=== PATIENT | male | born 1945 | race Caucasian/White ===

== ENCOUNTER 2021-05-20 18:22 | Emergency (ER) | payer MEDICAID ==
[~2021-05-20] VITALS: Ht 165.1 cm; Wt 49.9 kg
--- NOTE | 2021-05-20 18:45 | NUR ---
Pending MD evaluation. Patient in ER, accompanied by daughter. Patient alert and oriented x4 with complaints of abdominal pain 8 started this morning, with episodes of vomiting x2. Patient with history of pancreatic cancer stage 4 and currently on chemo therapy according to daughter. Vitals stable.
--- NOTE | 2021-05-20 19:02 | NUR ---
RECEIVED REPORT FROM MORNING SHIFT RN (CRISTY) PT NOTED TO BE IN BED, A/O X4, CLEAR SPEECH, COMPLETE SENTENCES. NO SOB OR LABORED BREATHING. DAUGHTER AT BEDSIDE.
[2021-05-20] MEDS ORDERED: IV NORMAL SALINE 1000 ML BAG IV ONE (19:15)
[2021-05-20] MEDS ORDERED: ONDANSETRON 4 MG/2 ML VIAL IV ONE (19:15)
[2021-05-20] MEDS ORDERED: HYDROMORPHONE 1 MG/1 ML DISP.SYRIN IV ONE (19:15)
[2021-05-20] MEDS ORDERED: HYDROMORPHONE 1 MG/1 ML DISP.SYRIN ONE (19:34)
[2021-05-20] MEDS ORDERED: ONDANSETRON 4 MG/2 ML VIAL ONE (19:34)
--- NOTE | 2021-05-20 19:40 | NUR ---
LAB AT BEDSIDE.
[2021-05-20 19:43] LABS: MEAN CORPUSCULAR HEMOGLOBIN 30.5 uug (23.8-33.4); MEAN CORPUSCULAR VOLUME 90.4 fL (73.0-96.2); PLATELET COUNT (AUTO) 346 K/uL (152-348)
[2021-05-20 19:52] LABS: CARBON DIOXIDE 26 mmol/L (21-32); CHLORIDE 98 mmol/L (98-107); CREATININE 0.9 mg/dL (0.6-1.3); GLUCOSE 261 mg/dL (74-106); POTASSIUM 3.5 mmol/L (3.5-5.1); UREA NITROGEN, BLOOD 23 mg/dL (7-18)
[2021-05-20 20:01] LABS: ALANINE AMINOTRANSFERASE 23 U/L (16-63); ALKALINE PHOSPHATASE 87 U/L (50-136); ASPARTATE AMINOTRANSFERASE 25 U/L (15-37); BILIRUBIN,DIRECT 0.2 mg/dL (0.0-0.2); BILIRUBIN,TOTAL 0.7 mg/dL (0.2-1.0); LIPASE 46 U/L (73-393); TOTAL PROTEIN, SERUM 6.9 g/dL (6.4-8.2)
[2021-05-20] MEDS ORDERED: SWABABLE VALVE TRANSFER SET EA MC ONE (20:06)
[2021-05-20] MEDS ORDERED: IOHEXOL 300MG/ML 100 ML INFUS..BTL ONE (20:07)
[2021-05-20] MEDS ORDERED: IV NORMAL SALINE 250 ML IV ONE (20:07)
[2021-05-20 20:52] LABS: *BILIRUBIN,URIN NEGATIVE (NEGATIVE); *CLARITY,URINE CLEAR (CLEAR); *COLOR,URINE YELLOW (YELLOW); *KETONES,URINE 1+ (NEGATIVE); *UROBILINOGEN,URINE 0.2 E.U./dl (NORMAL); LEUKOCYTE ESTERASE ,URINE NEGATIVE (NEGATIVE); NITRITE, URINE NEGATIVE (NEGATIVE); UGLUCOSE 1+ (NEGATIVE)
[2021-05-20 20:56] LABS: *BLOOD, URINE TRACE (NEGATIVE)
--- NOTE | 2021-05-20 20:56 | NUR ---
PT TAKEN DOWN FOR CT.
[2021-05-20 21:10] LABS: BACTERIA,URINE NONE SEEN /HPF (NONE SEEN); RBC,URINE 0-3 /HPF (0-3); SQUAMOUS EPITHELIAL CELL,UR FEW /HPF (NONE SEEN); WBC,URINE 0-3 /HPF (0-3)
[2021-05-20 21:11] LABS: SPERM,URINE MANY /HPF (NONE SEEN)
[2021-05-20] MEDS ORDERED: IV NS 1000 ML 1,000 ML IV ONE (21:15)
--- NOTE | 2021-05-20 21:16 | NUR ---
PT RETURNED FROM CT.
[2021-05-20] MEDS ORDERED: PIPERACILLIN SODIUM/TAZOBACTAM 3.375 G in IV DEXTROSE 5% 50 ML IV ONE (22:30)
[2021-05-20] MEDS ORDERED: PIPERACILLIN/TAZOBACTAM/D5W 50 ML IV ONE (22:40)
[2021-05-20] MEDS ORDERED: PROC-11 PO (22:47)
[2021-05-20] MEDS ORDERED: PROC25SU31 RC (22:47)
[2021-05-20 23:24] VITALS: BP 112/64
--- NOTE | 2021-05-20 23:24 | NUR ---
Patient discharged to home in stable condition. Written and verbal after care instructions given. Patient verbalizes understanding of instructions. Stressed follow up or return to ER for worsening s/s. Steady gait, denies any pain/discomfort upon discharge. No changes in LOC. Accompanied by daughter.
== END 2021-05-20 23:25 | disposition home or self-care (01) ==
LOC: ER 18:24
DX: R10.9 Unspecified abdominal pain (principal); R11.2 Nausea with vomiting, unspecified; E87.2 Acidosis; K56.7 Ileus, unspecified; R94.8 Abnormal results of function studies of other organs and systems; I45.10 Unspecified right bundle-branch block; C25.9 Malignant neoplasm of pancreas, unspecified; C78.7 Secondary malignant neoplasm of liver and intrahepatic bile duct; Z79.899 Other long term (current) drug therapy
CPT/HCPCS: 36415; 71045; 74177; 80048; 80076; 81001; 83605 ×2; 83690; 84484; 85025; 93005; 96361; 96365; 96375; 99285; J1170; J2405; J2543; Q9967; A4663; J7030; J7050

== ENCOUNTER 2021-05-27 14:15 | Inpatient (IN) | payer MEDICAID ==
[~2021-05-27] VITALS: Ht 162.6 cm; Wt 49.9 kg
[~2021-05-27 14:15] MED LIST: PROC-11 PO; PROC25SU31 RC
--- NOTE | 2021-05-27 14:15 | NUR ---
pt not in the waiting room, family member said that the pt will come soon.
--- NOTE | 2021-05-27 14:31 | NUR ---
Patient is still not found in the ER waiting room.
--- NOTE | 2021-05-27 15:01 | NUR ---
MD@bedside, medical screening exam in progress. Patient is already refusing admission (for chest pains diagnosis) with family as [facility] educational sign language interpreter. ER or first assist registered nurse Sepi also acted as [facility] educational sign language interpreter.
[2021-05-27] MEDS ORDERED: LIDOCAINE VISCUS 2% 15 ML UDC ONE (15:10)
[2021-05-27] MEDS ORDERED: ASPIRIN 325 MG TABLET ONE (15:10)
[2021-05-27] MEDS ORDERED: FAMOTIDINE 20 MG TABLET ONE (15:10)
[2021-05-27] MEDS ORDERED: ASPIRIN 325 MG TABLET PO ONE (15:15)
[2021-05-27] MEDS ORDERED: LIDOCAINE VISCUS 2% 15 ML UDC MM ONE (15:15)
[2021-05-27] MEDS ORDERED: FAMOTIDINE 20 MG TABLET PO ONE (15:15)
[2021-05-27 15:39] LABS: HEMATOCRIT 33.6 % (36.7-47.1); MEAN CORPUSCULAR HEMOGLOBIN 30.2 uug (23.8-33.4); MEAN CORPUSCULAR VOLUME 89.7 fL (73.0-96.2); PLATELET COUNT (AUTO) 207 K/uL (152-348)
[2021-05-27 15:47] LABS: CARBON DIOXIDE 30 mmol/L (21-32); CHLORIDE 95 mmol/L (98-107); CREATININE 0.9 mg/dL (0.6-1.3); GLUCOSE 205 mg/dL (74-106); UREA NITROGEN, BLOOD 28 mg/dL (7-18)
--- NOTE | 2021-05-27 15:49 | NUR ---
Patient had one small emesis of light yellow gastric fluid, approx 10 ml, MD notified.
[2021-05-27 15:51] LABS: POTASSIUM 2.8 mmol/L (3.5-5.1)
[2021-05-27 15:55] LABS: ALANINE AMINOTRANSFERASE 39 U/L (16-63); ALKALINE PHOSPHATASE 86 U/L (50-136); ASPARTATE AMINOTRANSFERASE 23 U/L (15-37); BILIRUBIN,TOTAL 0.5 mg/dL (0.2-1.0)
[2021-05-27] MEDS ORDERED: MORPHINE SULFATE 4 MG/1 ML DISP.SYRIN IM ONE (16:15)
[2021-05-27] MEDS ORDERED: MORPHINE SULFATE 4 MG/1 ML DISP.SYRIN ONE (16:21)
[2021-05-27] MEDS ORDERED: NITROGLYCERIN 0.4 MG/TAB BOTTLE SL ONE ×2 (16:45→16:53)
[2021-05-27] MEDS ORDERED: ENOXAPARIN SODIUM 60 MG/0.6 ML DISP.SYRIN SQ ONE ×2 (17:00→17:18)
--- NOTE | 2021-05-27 17:59 | NUR ---
Pt. admitted to Telemetry room 319 , under care of COMPENSATION AND BENEFITS ANALYST Tammie Santizo. Nursing SBAR given to nurse Dahl. Belongings List completed. Patient is for transfer to 3rd floor at around 8pm per 3rd floor supercharger repair supervisor Rohoni 2/2 staff issues and acuity in 3rd floor.
[2021-05-27] MEDS ORDERED: MAGNESIUM HYDROXIDE 30 ML LIQUID UDC PO PRN ×2 (18:00→20:15)
[2021-05-27] MEDS ORDERED: ACETAMINOPHEN 325 MG TABLET PO PRN ×2 (18:00→20:00)
[2021-05-27] MEDS ORDERED: ZOLPIDEM 5 MG TABLET PO PRN ×2 (18:00→20:15)
[2021-05-27] MEDS ORDERED: ONDANSETRON 4 MG/2 ML VIAL IV PRN ×2 (18:00→20:15)
[2021-05-27] MEDS ORDERED: MORPHINE SULFATE 2 MG/1 ML DISP.SYRIN IV PRN (18:00)
[2021-05-27] MEDS ORDERED: REMEDY ESSENTIAL ZINC PASTE 113 GM TP PRN (18:00)
--- NOTE | 2021-05-27 18:16 | NUR ---
Patient's care is upgraded to CCU per Dr Toro. Patient's family notified.
[2021-05-27] MEDS ORDERED: NITROGLYCERIN 0.4 MG/TAB BOTTLE SL PRN ×2 (19:00→20:15)
--- NOTE | 2021-05-27 19:01 | NUR ---
Patient is admitted to 3rd floor (telemetry vs [facility] vs CCU), pending callback from GARMENT ALTERATION EXAMINER Tammie Santizo, still for repeat EKG. Nursing SBAR given to ER-RN Eli Hamilton
--- NOTE | 2021-05-27 19:24 | NUR ---
Still for repeat EKG, night guard charge hand Albert notified.
--- NOTE | 2021-05-27 19:25 | NUR ---
MICROFILM CAMERA OPERATOR CATRACHITO LOTT CAME AND SAW PATIENT ,SPOKED WITH PATIENTS FAMILY MEMBERS ( DAUGHTER)AND PER DAUGHTER SHE SPOKED WITH HER MOM AND THEY WANT TO SIGNED AMA AND THEY DONT WANT PATIENT TO BE ADMITTED . CATRACHITO LOTT TOLD RN TO HAVE THE PATIENT FAMILY SIGNED THE AMA PAPERS.
--- NOTE | 2021-05-27 19:26 | NUR ---
BEDSIDE EKG DONE BY RN AT B/S RESULT -SR RATE 74,NORMAL P ,V RATE 50 -99 INFERIOR INFARCT OLD . NOTIFIED.
--- NOTE | 2021-05-27 19:42 | NUR ---
Nursing SBAR given to CCU nurse Alma.
--- NOTE | 2021-05-27 19:54 | NUR ---
CALLED : CATRACHITO REYES VIA PHONE THIS TIME THE OF THE PATIENT AND DAUGHTER WANTS TO SPEAK WITH THE DOCOTR AGAIN AND THEY HAVE QUESTIONS AND THEY WANT TO STAY AND WILLING TO BE ADMITTED .
[2021-05-27] MEDS ORDERED: POTASSIUM CHLORIDE 20 MEQ TAB.PRT.SR PO ONE ×2 (20:00→20:15)
--- NOTE | 2021-05-27 20:06 | NUR ---
BREASTFEEDING PEER COUNSELOR CATRACHITO LOTT AT /S ,SPOKED WITH PATIENTS DAUGHTER AND PATIENTS AT [facility] EXPLAINED PLAN OF CARE AND TREATMENT . PATIENTS FAMILY MEMBER QUESTIONS ANSWERED . INFORMED FAMILY THAT WAHTEVER QUESTIONS THEY HAVE TO AKSED WHILE THE DOCTOR AT /S.
[2021-05-27] MEDS ORDERED: POTASSIUM CHLORIDE 20 MEQ TAB.PRT.SR ONE (20:24)
[2021-05-27 20:30] VITALS: BP 121/78
[2021-05-27 21:30] VITALS: BP 128/76
[2021-05-27 22:30] VITALS: BP 140/94
--- NOTE | 2021-05-27 22:30 | NUR ---
PT DISCHARGE FROM ER AND ADMITTED ICU PATIENT AND OVERTURNED TO ICU CHARTING TO NURSE BLANCA LOPEZ.
[2021-05-28] VITALS (18 sets, daily range): BP systolic 97–158; BP diastolic 45–97
--- NOTE | 2021-05-28 01:00 | NUR ---
PATIENT CALLED WANTS TO URINATE GIVEN URINAL ,BUT REFUSES TO USED THE URINAL , ESCORTED TO THE BATH ROOM , VOIDED .
[2021-05-28] MEDS ORDERED: ACETAMINOPHEN 325 MG TABLET ONE (04:42)
[2021-05-28] MEDS ORDERED: MORPHINE SULFATE 2 MG/1 ML DISP.SYRIN ONE ×2 (05:19→09:14)
[2021-05-28] MEDS: MORPHINE SULFATE 2 MG/1 ML DISP.SYRIN IV PRN ×3 (05:24→19:23)
--- NOTE | 2021-05-28 05:24 | NUR ---
PATIENT COMPLAINED OF RIGHT ELBOW PAIN . GIVEN MORPHINE PRN 1 MG IVP .
[2021-05-28 05:31] LABS: HEMATOCRIT 34.2 % (36.7-47.1); MEAN CORPUSCULAR HEMOGLOBIN 30.8 uug (23.8-33.4); MEAN CORPUSCULAR VOLUME 90.6 fL (73.0-96.2); PLATELET COUNT (AUTO) 195 K/uL (152-348)
[2021-05-28 05:41] LABS: CREATININE 0.9 mg/dL (0.6-1.3); PHOSPHOROUS 2.4 mg/dL (2.5-4.9); POTASSIUM 3.4 mmol/L (3.5-5.1)
--- NOTE | 2021-05-28 06:00 | NUR ---
ESCORTED TO THE BATHROOM , ABLE TO WALK WITH ASSISTANCE ,URINATED .
--- NOTE | 2021-05-28 06:30 | NUR ---
CHANGED GURNEY TO A REGULAR BED ,CHANGED SOILED LINENS AND GOWN .
[2021-05-28 08:26] LABS: *BILIRUBIN,URIN NEGATIVE (NEGATIVE); *CLARITY,URINE TURBID (CLEAR); *COLOR,URINE YELLOW (YELLOW); *KETONES,URINE 2+ (NEGATIVE); *UROBILINOGEN,URINE 0.2 E.U./dl (NORMAL); LEUKOCYTE ESTERASE ,URINE NEGATIVE (NEGATIVE); NITRITE, URINE NEGATIVE (NEGATIVE); UGLUCOSE NEGATIVE (NEGATIVE)
[2021-05-28] MEDS ORDERED: ASPIRIN 325 MG TABLET ONE (08:31)
[2021-05-28] MEDS: ASPIRIN 81 MG TAB.CHEW PO SCH (08:32)
[2021-05-28 08:41] LABS: *BLOOD, URINE TRACE (NEGATIVE)
[2021-05-28 08:47] LABS: BACTERIA,URINE NONE SEEN /HPF (NONE SEEN); SQUAMOUS EPITHELIAL CELL,UR FEW /HPF (NONE SEEN); WBC,URINE NONE SEEN /HPF (0-3)
[2021-05-28 08:48] LABS: CALCIUM OXALATE CRYSTALS,UR FEW /HPF (NONE SEEN); MUCUS,URINE FEW /LPF (0-FEW)
[2021-05-28] MEDS ORDERED: ASPIRIN 81 MG TAB.CHEW PO SCH (09:00)
[2021-05-28] MEDS ORDERED: ENOXAPARIN SODIUM 60 MG/0.6 ML DISP.SYRIN SQ SCH ×2 (09:00)
[2021-05-28] MEDS ORDERED: POTASSIUM CHLORIDE 50 ML ONE ×2 (10:10→11:33)
[2021-05-28] MEDS ORDERED: ENOXAPARIN SODIUM 60 MG/0.6 ML DISP.SYRIN SQ ONE (10:11)
[2021-05-28] MEDS: POTASSIUM CHLORIDE 50 ML IV SCH ×2 (10:16→11:44)
[2021-05-28] MEDS: ENOXAPARIN SODIUM 60 MG/0.6 ML DISP.SYRIN SQ SCH ×2 (10:16→20:32)
[2021-05-28] MEDS ORDERED: NEUTRA PHOS PACKET PO ONE (15:30)
--- NOTE | 2021-05-28 17:00 | NUR ---
Downgrade to Tele per Tammie robert.
--- NOTE | 2021-05-28 17:37 | NUR ---
Contacted Yasmine on Telemetry, report given. Patient will be transferred to room 315.
--- NOTE | 2021-05-28 18:00 | NUR ---
Patient arrived from [facility] to room 315. Received report of JESSICA Sal. No s/s of discomfort or distress. Transferred to bed from the wheelchair independently. desk monitor applied. Made comfortable and oriented in the room. Belongings reviewed. Will monitor the patient for changes.
--- NOTE | 2021-05-28 19:45 | NUR ---
Patient continues to be restless and screaming in bed. Able to answer simple questions with yes and no, speech is incoherent at times. He attempts to pinch and aggressively grab this nurse when mittens are removed. Dr. Moise pagemichaelle and made aware of behavior. States he will come see this patient today. Patient made comfortable and water provided. Safety measures initiated. Addendum: 05/28/21 at 2147 by JUAN PERDOMO RN Wrong patient
--- NOTE | 2021-05-28 21:30 | NUR ---
Patient continues to be non stop screaming. Needs assessed, occasionally asks for water. Hygiene care provided, 2 person max assist. Patient is kicking staff during care. IV dislodged on left FA, 3 attempts needed with 2 person assist to reinsert IV on right FA. Patient continues to be restless in bed, attempting to get out of bed. Frequent visual checks continued. Bilateral soft wrist restraints and mittens in place. Addendum: 05/28/21 at 2147 by JUAN PERDOMO RN Wrong patient
[2021-05-29 00:32] VITALS: BP 134/97
[2021-05-29] MEDS: MORPHINE SULFATE 2 MG/1 ML DISP.SYRIN IV PRN ×4 (01:20→12:27)
[2021-05-29 04:00] VITALS: BP 126/84
--- NOTE | 2021-05-29 05:54 | NUR ---
Patient is AAO to person and place. Daughter in unit at beginning of shift and able to translate for this nurse. He complains of pain to right elbow, Morphine provided as ordered and effective for pain management. Denies any chest pain, Telemetry is NSR 70's 80's with occasional, junctional non sustained. Patient slept intermittently. Safety measures continued. Call light within reach.
[2021-05-29 06:09] LABS: CARBON DIOXIDE 29 mmol/L (21-32); CHLORIDE 95 mmol/L (98-107); CREATININE 0.9 mg/dL (0.6-1.3); GLUCOSE 152 mg/dL (74-106); PHOSPHOROUS 2.7 mg/dL (2.5-4.9); UREA NITROGEN, BLOOD 21 mg/dL (7-18)
[2021-05-29] MEDS: ASPIRIN 81 MG TAB.CHEW PO SCH (08:59)
[2021-05-29] MEDS: ENOXAPARIN SODIUM 60 MG/0.6 ML DISP.SYRIN SQ SCH (09:00)
[2021-05-29] MEDS ORDERED: POTASSIUM CHLORIDE 20 MEQ TAB.PRT.SR PO SCH (10:00)
[2021-05-29] MEDS ORDERED: CARVEDILOL 6.25 MG TABLET PO SCH (10:15)
[2021-05-29] MEDS: POTASSIUM CHLORIDE 20 MEQ TAB.PRT.SR PO SCH ×2 (10:43→12:14)
[2021-05-29 11:00] VITALS: BP 120/82
--- NOTE | 2021-05-29 12:41 | NUR ---
Pt.refusing from treatment,ask for AMA, sing.daughter at bedside. Tammie Burk HOT DIP GALVANIZER notified.leaving with daughter home.
== END 2021-05-29 12:50 | disposition left against medical advice (07) | DRG 190 ==
LOC: ER 14:41 → TELE3 17:35 → TRANSITION 21:00 → TELE3 05-28 17:59
PROVIDERS: ADMIT Nurse Practitioner Acute Care; ATTEND Nurse Practitioner Acute Care
DX: I21.4 Non-ST elevation (NSTEMI) myocardial infarction (principal); C25.9 Malignant neoplasm of pancreas, unspecified; E87.6 Hypokalemia; R11.2 Nausea with vomiting, unspecified; C78.7 Secondary malignant neoplasm of liver and intrahepatic bile duct; T45.1X5A Adverse effect of antineoplastic and immunosuppressive drugs, initial encounter; Y92.039 Unspecified place in apartment as the place of occurrence of the external cause; I10 Essential (primary) hypertension; R79.89 Other specified abnormal findings of blood chemistry
CPT/HCPCS: 36415; 71045; 83735; 84100; 84484; 85025; 93005; 93307; A4663; G0378; J1650; J2270; J3480

== ENCOUNTER 2021-07-17 15:05 | Emergency (ER) | payer MEDICAID ==
[~2021-07-17] VITALS: Ht 162.6 cm; Wt 58.1 kg
[2021-07-17] MEDS ORDERED: MORPHINE SULFATE 2 MG/1 ML DISP.SYRIN IM ONE (15:45)
[2021-07-17] MEDS ORDERED: ONDANSETRON ODT 4 MG TAB.RAPDIS SL ONE (15:45)
[2021-07-17] MEDS ORDERED: MORPHINE SULFATE 2 MG/1 ML DISP.SYRIN ONE (15:49)
[2021-07-17] MEDS ORDERED: ONDANSETRON ODT 4 MG TAB.RAPDIS ONE (15:50)
--- NOTE | 2021-07-17 15:57 | NUR ---
PT WAS EVALUATED BY DR NICE. PT WAS D/C'D TO HOME. D/C INSTRUCTIONS GIVEN TO THE PT BY DR NICE. GAIT IS STABLE. NO S/S OF DISTRESS.
[2021-07-17 16:01] VITALS: BP 131/68
== END 2021-07-17 16:02 | disposition home or self-care (01) ==
LOC: ER 15:07
DX: R10.9 Unspecified abdominal pain (principal); C25.9 Malignant neoplasm of pancreas, unspecified; C79.9 Secondary malignant neoplasm of unspecified site; G89.29 Other chronic pain
CPT/HCPCS: 96372; 99283; J2270; A4663; Q0162

== ENCOUNTER 2021-08-30 11:23 | Emergency (ER) | payer MEDICAID ==
[~2021-08-30] VITALS: Ht 162.6 cm; Wt 54.4 kg
--- NOTE | 2021-08-30 11:50 | NUR ---
PT SEEN AND EVALUATED BY DR ORTIZ. PT IS CURRENTLY ON LASIX, TENDS TO MAINTAIN SITTING POSITION ALL THE TIME, MINIMAL LEG MOVEMENT. DAUGHTER WAS GIVEN DISCHARGE INSTRUCTIONS AND WAS ADVISED TO FOLLOW UP WITH PRIMARY CARE PHYSICIAN. DAUGHTER RECEPTIVE TO INSTRUCTIONS
== END 2021-08-30 11:58 | disposition home or self-care (01) ==
LOC: ER 11:23
DX: R60.0 Localized edema (principal); C25.9 Malignant neoplasm of pancreas, unspecified; Z79.899 Other long term (current) drug therapy; G89.29 Other chronic pain
CPT/HCPCS: 71045; A4663

== ENCOUNTER 2021-09-04 15:12 | Emergency (ER) | payer MEDICAID ==
--- NOTE | 2021-09-04 15:45 | NUR ---
PT LEFT WITHOUT BEEN TRIAGED.
== END 2021-09-04 15:46 | disposition left against medical advice (07) ==
LOC: ER 15:12
DX: Z53.21 Procedure and treatment not carried out due to patient leaving prior to being seen by health care provider (principal)